=== PATIENT | male | born 1995 | race Caucasian/White ===

== ENCOUNTER 2016-09-07 07:10 | Day surgery (SDC) | payer OTHER ==
[2016-09-07] VITALS (10 sets, daily range): BP systolic 103–142; BP diastolic 49–92; PULSE 62–79; RESP 15–17; O2SAT 94–98
[~2016-09-07] VITALS: Ht 167.6 cm; Wt 78.5 kg
[~2016-09-07 07:10] MED LIST: Levofloxacin 500 mg/100 mL D5W IV SCH
[2016-09-07] MEDS ORDERED: Propofol 10,000 mCg/mL 20 mL Inj ONE (07:11)
[2016-09-07] MEDS ORDERED: Dexamethasone 4 mg/mL Inj ONE (07:11)
[2016-09-07] MEDS ORDERED: fentaNYL-PF 50 mCg/mL 2 mL Inj ONE (07:11)
[2016-09-07] MEDS ORDERED: Ondansetron 2 mg/mL 2 mL Inj ONE (07:11)
[2016-09-07] MEDS: Lactated Ringer's 1,000 ML IV SCH ×3 (07:25→10:59)
[2016-09-07] MEDS ORDERED: Lactated Ringer's 500 ML IV PRN (09:10)
[2016-09-07] MEDS ORDERED: Ondansetron 2 mg/mL 2 mL Inj IVPUSH PRN (09:10)
[2016-09-07] MEDS ORDERED: Phenylephrine 10,000 mCg/mL Inj IVPUSH PRN (09:10)
[2016-09-07] MEDS ORDERED: EPHEDrine Sulfate 50 mg/mL Inj IVPUSH PRN (09:10)
[2016-09-07] MEDS ORDERED: Lactated Ringer's 1,000 ML IV SCH (09:10)
[2016-09-07] MEDS ORDERED: MetoCLOpramide 5 mg/mL 2 mL Inj IVPUSH PRN (09:10)
[2016-09-07] MEDS ORDERED: HYDROmorphone 1 mg/mL Inj IVPUSH PRN (09:10)
[2016-09-07] MEDS ORDERED: Atropine 0.4 mg/mL Inj IVPUSH PRN (09:10)
[2016-09-07] MEDS ORDERED: Labetalol 5 mg/mL 4 mL Inj IV PRN (09:10)
--- NOTE | 2016-09-07 09:10 | PCM.HPANE ---
Patient Data Surgeon Admitting Provider: Attending Provider:Isael White MD Primary Care Physician:Kana Other Provider:Martinez Carr Anesthesia Reason for Visit Left Ureteral Stone, Left Hydronephrosis Ht/WT & BMI Height (Feet): 5 Height (Inches): 6.00 Weight (Kilograms): 78.500 Body Mass Index 27.00 Allergies Coded Allergies: No Known Allergies (Verified Allergy, Unknown, 09/05/16) Past Anesthesia History Anesthesia History: Denies:: Abnormal Airway, Anesthesia Reactions, Difficult Intubation, Fam Anesthesia Reaction, Fam Malignant Hypertherm, Malignant Hyperthermia Diabetes History Hx Diabetes?: No MRSA MRSA: No Medications Hypertension Medication: No Home Meds Incl Beta Chan: No No Active Prescriptions or Reported Meds History History of ENT Problems?: No HEENT History: Denies:: Abnormal Airway Cataracts Difficult Intubation Dysphagia Glaucoma Hearing Problem Sinus Problem TMJ Denture Type: None Teeth Condition: Within Normal Limits Hx of Heart Problems?: No Cardiovascular History: Denies:: AICD Abdominal Aortic Aneurism Atrial Fibrillation Cardiac Surgery Chest Pain Congestive Heart Failure Coronary Artery Disease Edema Heart Murmur Hypertension Irregular Heartbeat Pacemaker Peripheral Vascular Rheumatic Fever Thrombophlebitis Valvular Heart Disease Hx of Respiratory Problem?: No Respiratory History: Denies:: Asthma COPD Chest Surgery Cough Dyspnea Emphysema Hemoptysis Oxygen Administration Pneumonia Pulmonary Embolism Tuberculosis Use of C-PAP Machine Use of Inhalers / NEBS Hx Neurologic Problems?: No Hx of GI Problems?: No Hx of Problems?: Yes Genitourinary History: Positive for:: Kidney Stones Male Hx: Denies:: Prostate Problems Scrotal Mass Testicular Surgery Skin History: Denies:: History Skin Disorders? Pressure Ulcers Hx Musculoskeletal Problems?: No Hx of Psycho/Social Problems?: No Hx Surgeries?: Yes (oral surgery) Hx Any Other Health Problems?: No Other History: Denies:: Cancer Hx Diabetes: No Hx Alcohol Use: NoHx Substance Use: NoHave You Smoked inLast 12 mo: No Stop/Bang S-Snoring: Do You Snore Loudly: No T-Tired: feel tired, fatigued: No O-Obsered: Observed not breath: No P-Blood Pressure: treated: No B- Body Mass Index > 35 kg/m2: No A- Age over 50: No N- Neck Large Circumference: No G- Gender Male: Yes AMOL Total Score: 1 AMOL Risk Assessment: Low Risk, <3 Yes Risk Assessment Category Category 1A: Patient has history of documented sleep apnea, and HAS NOT received any narcotic, sedative or anesthesia administration during this stay. Category 1B: Patient has history of documented sleep apnea, and HAS received any narcotic , sedative or anesthesia administration during this stay Category 2: Patient has SUSPECTED Obstructive Sleep Apnea, and HAS received any narcotic , sedative or anesthesia administration during this stay. Category 3: Patient has SUSPECTED Obstructive Sleep Apnea and HAS NOT received narcotic, sedative or anesthesia administration during this stay. Category 4: Outpatient in Procedural Areas with known sleep apnea or who screen positive for High Risk via the STOP/BANG questionnaire. Exam Exam Vital Signs Vital Signs Date Time Temp Pulse Resp B/P Pulse Ox O2 Delivery O2 Flow Rate FiO2 09/07/16 07:31 36.3 78 16 127/92 97 Room Air General Appearance: Alert, Oriented X3, Cooperative, No Acute Distress HEENT/AIRWAY: MP 2 Lungs: Clear to Auscultation, Normal Air Movement Heart: Exam Unremarkable, Regular Rate/Rhythm, No Murmurs/Rubs/Gallops Meds/Labs/Diagnostics Admission Meds Current Medications Lactated Ringer's (Lr) 1,000 ml @ 120 mls/hr [id number] IV Last administered on t 07:25; Start 09/07/16 at 05:00; Stop 09/07/16 at 13:19 Plan Impression Patient chart reviewed, patient interviewed and anesthestic plan with risks, benefits, and alternatives discussed, and informed consent obtained. NPO per Anesth. Guidelines: Yes ASA Physical Status: ASA1 Normal Healthy Anesthetic Plan: GA Bene/Risks/Altern/Consents: Yes HP Complete Prior to Induction: Yes Gene Heck MD September 07, 2016 07:51
[2016-09-07] MEDS ORDERED: Belladonna Alk-Opium 60 mg Rectal Suppository RECTAL ONE ×2 (10:16→10:32)
--- NOTE | 2016-09-07 10:42 | PCM.SURGPO ---
Immediate Operative Note Date of Surgery: September 07, 2016 Pre Operative Diagnosis L ureteral calculus Post Operative Diagnosis L ureteral calculus Procedure Cystoscopy, L ureteroscopy, Holmium laser lithotripsy, basket extraction of calculus fragments, and L ureteral stent placement Surgeon and Shelter Monitor Surgeon: Isael White MD Assistants: None Findings Cystoscopy revealed no bladder tumors, lesions, or calculi and B/L ureteral orifices in normal position. L semi-rigid ureteroscopy revealed no calculi in L distal ureter. L flexible ureteroscopy revealed an approx. 10mm calculus in L mid ureter. Holmium laser lithotripsy and basket extraction of calculus fraqments performed. L ureteral stent placed. Complications There were no periprocedural complications identified. Surgical Specimen Removed: Yes Specimen sent to Pathology: No Surgical Specimen description: L ureteral calculus fragments sent to lab for stone analysis Anesthetic Administered: GA Grafts, Implants: Other (28cm x 5F L ureteral JJ stent (no string)) Output, Estimated Blood Loss: <5 Blood Admin during surgery: No Additional information Patient to return to see me in 6-8 days for cystoscopy, stent removal, and post- op visit. Isael White MD September 07, 2016 10:42
--- NOTE | 2016-09-07 10:46 | PCM.ANEP1 ---
Post Anesthesia PACU Phase 1 Assessment Vital Signs Vital Signs Date Time Temp Pulse Resp B/P Pulse Ox O2 Delivery O2 Flow Rate FiO2 09/07/16 10:35 75 16 123/63 97 Room Air 09/07/16 10:30 75 16 122/66 98 Simple Mask 10 09/07/16 10:29 36.4 79 16 120/59 98 Simple Mask 10 09/07/16 07:31 36.3 78 16 127/92 97 Room Air Anesthetic Administered: GA Level of Alertness: Sleeping, hard to arouse ARIAS's with Equal Strength: Yes Pain: No Nausea or Vomiting: No CV Function & Hydration Stable: Yes Airway Device: Oralpharangeal Airway Oxygen Delivery: Simple Mask Lungs: Clear to Auscultation, Normal Air Movement PACU Phase 2 Assessment Complications: No Follow up Care: N/A Patient Instructions Provided: N/A Gene Heck MD September 07, 2016 10:46
--- NOTE | 2016-09-07 10:48 | PCM.DISURG ---
Surgical Discharge Instruction Date of Service September 07, 2016 Dates of Hospitalization Date of Hospital Admission September 07, 2016 Providers Admitting Physician: Isael White MD Primary Care Physician: [place] Attending Physician: Isael White MD Discharge Diagnosis Discharge Diagnosis L ureteral calculus Post Operative diagnosis L ureteral calculus Diet Discharge Diet: No restrictions, Other (Drink at least 10-12 8oz. glasses (3 liters) of fluids per day) Activity Discharge Activity-General: No restrictions, No driving while taking narcotic Dressing and Incisional Care Hygiene: August shower Follow Up Plan Follow-up Provider (F9): Isael White MD Follow-up appointment: Days (6-8 days for cystoscopy, stent removal, and post- op visit) Call your provider for: Fever, Chills, Vomiting, Other (Pain uncontrolled by pain medication) Isael White MD September 07, 2016 10:48
[2016-09-07] MEDS ORDERED: HYDROcodone-APAP 5-325 mg Tablet PO PRN (10:55)
[2016-09-07] MEDS ORDERED: Phenazopyridine 97.5 mg Tablet PO PRN (10:55)
[2016-09-07] MEDS: fentaNYL-PF 50 mCg/mL 2 mL Inj IVPUSH PRN ×2 (10:58→11:20)
--- NOTE | 2016-09-07 11:09 | DRSVH ---
PROCEDURE: X-RAY RETROGRADE UROGRAPHY INDICATIONS: STONE AND STENT LEFT SIDE TECHNIQUE: 3 intra-operative images acquired by the Urology service. COMPARISON: Outside Film, CT, CT KUB, 08/09/2016, 8:01. FINDINGS: Exam is limited to 3 submitted images. Within these limits, several small intraluminal fi lling defects seen involving the inferior pole of the left kidney which otherwise appears normal. Vi sualized portions of the proximal left ureter are grossly normal. Ureteral stent was placed. IMPRESSION: Several small filling defects involving the inferior pole of the left kidney which could be related t o retained stones. Correlate with real time examination. Ureteral stent placement. Dictated by: Daniel CLEMONS Interpreted: Real Owusu MD on 09/07/2016 at 11:08 Transcribed by: FLORY on 09/07/2016 at 11:09 Approved by: Sancho Owusu M.D. on 09/07/2016 at 11:18
--- NOTE | 2016-09-08 16:22 | OP ---
[address] [address] OPERATIVE REPORT PATIENT: AMAN CARMONA : 1995 MR#: [id number] ADMIT: 09/07/2016 JOB ID: [id number] DATE OF SURGERY: 09/07/2016 PREOPERATIVE DIAGNOSIS(ES): Left ureteral calculus. POSTOPERATIVE DIAGNOSIS(ES): Left ureteral calculus. PROCEDURE: Cystoscopy, left ureteroscopy, holmium laser lithotripsy, basket extraction of calculus fragments and left ureteral stent placement. SURGEON: Isael White M.D. COMMERCIAL TIRE SERVICE TECHNICIAN: None. ANESTHESIA: General. ESTIMATED BLOOD LOSS: Less than 5 mL. SPECIMENS: Left ureteral calculus fragments sent to the lab for stone analysis. DRAINS: A 28 cm x 28 cm 5-Belarusian left ureteral double-J stent. COMPLICATIONS: None. CONDITION: Stable. FINDINGS: Cystoscopy revealed no bladder tumors, lesions or calculi and bilateral ureteral orifices in normal position. Left semi-rigid ureteroscopy revealed no calculi in the left distal ureter. Left flexible ureteroscopy revealed an approximately 10 mm calculus in the left mid ureter. Holmium laser lithotripsy and basket extraction of calculus fragments were performed. Left renal stent was placed. INDICATIONS: The patient is a 20-year-old male with a 10 mm left proximal ureteral calculus. The patient now presents for cystoscopy, left ureteroscopy, holmium laser lithotripsy, possible basket extraction of calculus fragments and left renal stent placement. PROCEDURE: The patient was brought to the operating room and placed supine on the operating room table. The patient was given Levaquin IV antibiotics. Sequential compression device boots were placed. General anesthesia was administered. The patient was brought down into the dorsal lithotomy position. The patient was prepped and draped in standard surgical fashion. A 22-Belarusian rigid cystoscope was placed into the distal urethra without difficulty. The distal cystoscopy revealed normal distal urethra. No bladder tumors, lesions or calculi and bilateral ureteral orifices in normal position. An angle tip UltraTrack guidewire was passed into the left ureteral orifice and passed up the left ureter into the left renal pelvis. Cystoscope was removed from the patient. A semi-rigid ureteroscope was passed through the urethra and bladder and into the left ureteral orifice with the assistance of a PTFE guidewire. Left semi-rigid ureteroscopy revealed no calculi in the left distal ureter. The PTFE guidewire was advanced up the left ureter into the left renal pelvis. The semi-rigid ureteroscope was removed from the patient. Of note the UltraTrack guidewire had been secured to the drape with a Bhumika clamp as a safety wire prior to performing ureteroscopy. A flexible ureteroscope was passed over the PTFE guidewire through the urethra and bladder and up into the left mid ureter. Left flexible ureteroscopy revealed an approximately 10 mm calculus in the left mid ureter. The calculus was fragmented into small fragments using a holmium laser lithotripsy using a 273 micron holmium laser fiber. Basket extraction of calculus fragments was performed using a 2.2-[place]ian [employer] Helical Nitinol basket. The calculus fragments were sent to the laboratory for stone analysis. The left proximal, left mid and left distal ureter were visualized with the ureteroscope. No significant 2 mm or larger calculus fragments were seen. A small amount of contrast was instilled into the left ureter and left renal collecting system to illuminate the left renal collecting system to aid in stent placement to the left. The flexible ureteroscope was backed down the left ureter and again no significant 2 mm or larger calculus fragments were seen. The flexible ureteroscope was then removed from the patient. The rigid cystoscope was passed over the safety guidewire through the urethra into the bladder. A 28 cm x 5-Belarusian ureteral double-J stent, with the stent string removed, prior stent placement, was passed over the guidewire through the cystoscope and passed up the left ureter and placed so that the proximal pigtail was located in the left renal pelvis and distal pigtail was located in the bladder. The guidewire was removed. Correct positioning of the stent was confirmed both fluoroscopically and under direct visualization using the cystoscope. Good efflux of contrast could be seen draining from the distal end of the stent into the bladder further confirming correct stent positioning. The bladder was drained via the cystoscope. The cystoscope was removed from the patient. Skin was cleaned and dried. The patient was placed in the supine position. The patient was awakened from general anesthesia and transferred to the recovery room in stable condition. The patient tolerated the procedure well. Plan is for the patient to return to see me in the office in 6-8 days for cystoscopy, stent removal and postoperative visit.
[2016-09-15 09:12] LABS: Stone Color Brown (.)
== END 2016-09-07 23:59 | disposition home or self-care (01) ==
LOC: SAS 07:10
PROVIDERS: ATTEND Urology
DX: N20.1 Calculus of ureter (principal); N13.2 Hydronephrosis with renal and ureteral calculous obstruction; Z87.442 Personal history of urinary calculi
CPT/HCPCS: 52356; 74420; 82360; C2617; J1100; J2250; J2405; J3010; J7120; Q9967